=== PATIENT | female | born 1990 | race Two or more races ===

== ENCOUNTER 2025-03-23 01:06 | Emergency (ER) | payer MEDICAID, SELFPAY ==
[2025-03-23 01:07] VITALS: BMI 37.9
--- NOTE | 2025-03-23 01:52 | PC.NURSE ---
no answer at er lobby or outside er to be seen by provider
--- NOTE | 2025-03-23 02:13 | PC.NURSE ---
CALLED PATIENT IN THE LOBBY AND OUTSIDE NO ANSWER RECEIVED.
--- NOTE | 2025-03-23 02:22 | PC.NURSE ---
CALLED PATIENT IN THE LOBBY AND OUTSIDE, NO ANSWER RECEIVED.
--- NOTE | 2025-03-23 02:31 | PD.EDADDENDU ---
Emergency Room Addendum Addendum Narrative: When I looked for the patient for evaluation, I was told the patient eloped. Rickie Hicks MD
== END 2025-03-23 02:31 | disposition left against medical advice (07) ==
LOC: SERX 03:14
PROVIDERS: Emergency Provider Emergency Medicine
DX: Z53.21 Procedure and treatment not carried out due to patient leaving prior to being seen by health care provider (principal)
CPT/HCPCS: 93005; 99283